=== PATIENT | male | born 1965 | race Caucasian/White ===

== ENCOUNTER 2017-09-26 17:35 | Emergency (ER) | payer SELFPAY, BC | END 2017-09-26 18:31 | disposition home or self-care (01) | LOC: M ED 17:35 | DX: F10.10 Alcohol abuse, uncomplicated (principal); F17.210 Nicotine dependence, cigarettes, uncomplicated | CPT/HCPCS: 99284 ==

== ENCOUNTER → 2019-04-26 | Outpatient (REF) | payer OTHER ==
[2019-04-26 18:06] LABS: BASO # 0.1 10^3/uL (0.0-0.2); BASO % 0.6 % (0.0-1.0); EOS # 0.2 10^3/uL (0.0-0.5); EOS % 2.2 % (0.0-3.0); HEMATOCRIT 42.1 % (42.0-52.0); HEMOGLOBIN 13.8 g/dl (13.5-17.5); LYMPH # 1.1 10^3/uL (1.5-5.0); LYMPH % 9.8 % (24.0-44.0); MEAN CORPUSCULAR HEMOGLOBIN 30.5 pg (27.0-33.0); MEAN CORPUSCULAR HGB CONC 32.8 g/dl (32.0-36.5); MEAN CORPUSCULAR VOLUME 93.1 fl (80.0-96.0); MONO # 1.1 10^3/uL (0.0-0.8); MONO % 10.3 % (0.0-5.0); NEUTROPHILS # 8.5 10^3/uL (1.5-8.5); NEUTROPHILS % 76.6 % (36.0-66.0); PLATELET COUNT, AUTOMATED 377 10^3/uL (150-450); RED BLOOD COUNT 4.52 10^6/uL (4.30-6.10); WHITE BLOOD COUNT 11.1 10^3/uL (4.0-10.0)
[2019-04-26 18:13] LABS: ALBUMIN 3.8 GM/DL (3.2-5.2); ALT/SGPT 15 U/L (12-78); BILIRUBIN,TOTAL 0.5 MG/DL (0.2-1.0); BLOOD UREA NITROGEN 7 MG/DL (7-18); CALCIUM LEVEL 9.4 MG/DL (8.5-10.1); CARBON DIOXIDE LEVEL 32 MEQ/L (21-32); CHLORIDE LEVEL 96 MEQ/L (98-107); CHOLESTEROL LEVEL 176 MG/DL (<200); CHOLESTEROL RISK RATIO 2.933 (<5); CREATININE FOR GFR 0.64 MG/DL (0.70-1.30); ETHYL ALCOHOL (ETHANOL) 0.035 % (0.000-0.010); GLOMERULAR FILTRATION RATE > 60.0 (>56); GLUCOSE, FASTING 106 MG/DL (70-100); HDL CHOLESTEROL 60 MG/DL (>40); LDL CHOLESTEROL 80 MG/DL (<100); NON-HDL-C 116 MG/DL; POTASSIUM SERUM 3.9 MEQ/L (3.5-5.1); SODIUM LEVEL 137 MEQ/L (136-145); TOTAL PROTEIN 7.4 GM/DL (6.4-8.2); TRIGLYCERIDES LEVEL 181 MG/DL (<150)
[2019-05-01 08:06] LABS: CANNABINOID, URINE Positive (Cutoff=20); CARBOXY THC (GC/MS) >300 ng/mL (Cutoff=10); CREATININE, URINE 212.8 mg/dL (20.0-300.0); OXYCODONE URINE Positive (.); OXYCODONE, URINE CONFIRM 132 ng/mL (Cutoff=100); OXYCODONE/OXYMORPH, URINE Positive (Cutoff=100); OXYMORPHONE, URINE Positive (.); OXYMORPHONE, URINE CONFIRM 1979 ng/mL (Cutoff=100)
== END ==
LOC: M SFHCPLAZ 14:50
DX: Z13.220 Encounter for screening for lipoid disorders (principal); Z13.1 Encounter for screening for diabetes mellitus; Z13.0 Encounter for screening for diseases of the blood and blood-forming organs and certain disorders involving the immune mechanism; F10.21 Alcohol dependence, in remission; Z13.89 Encounter for screening for other disorder

== ENCOUNTER 2019-12-08 19:05 | Emergency (ER) | payer OTHER ==
[~2019-12-08] VITALS: Ht 167.6 cm; Wt 56.1 kg
[~2019-12-08 19:05] MED LIST: DIFL10SU GT; FENT12DI8 TD; FLAG500T PO; PENI500T PO
[2019-12-08 19:06] VITALS: BP 105/69
[2019-12-09] MEDS ORDERED: PENI500T (09:08)
[2019-12-09] MEDS ORDERED: GLYC1TAB18 (09:08)
[2019-12-14] MEDS ORDERED: LEVO750T13 PO ×2 (11:07→11:09)
== END 2019-12-08 20:17 | disposition home or self-care (01) ==
LOC: M ED 19:05
DX: K94.23 Gastrostomy malfunction (principal); C32.9 Malignant neoplasm of larynx, unspecified; F17.200 Nicotine dependence, unspecified, uncomplicated; Z79.899 Other long term (current) drug therapy

== ENCOUNTER 2019-12-09 08:57 | Emergency (ER) | payer OTHER ==
[~2019-12-09] VITALS: Ht 167.6 cm; Wt 55.7 kg
[2019-12-09] MEDS ORDERED: GLYC1TAB18 (09:08)
[2019-12-09] MEDS ORDERED: PENI500T (09:08)
[2019-12-09] MEDS ORDERED: LIDOCAINE 2% 5ML JELLY UROJET As Ordered ONE (09:58)
[2019-12-09] MEDS ORDERED: LIDOCAINE 2% 5ML JELLY UROJET TOP ONE (10:00)
[2019-12-09] MEDS ORDERED: GASTROGRAFIN SOLUTION 30ML (Q9963) PEG STA (10:19)
[2019-12-09] MEDS ORDERED: GASTROGRAFIN SOLUTION 30ML (Q9963) As Ordered ONE (10:19)
[2019-12-09 10:49] VITALS: BP 98/56
--- NOTE | 2019-12-09 11:21 | REP ---
KUB ABDOMEN AND PELVIS: KUB film of the abdomen and pelvis performed. Contrast is injected through a PEG tube to evaluate tip positioning. The contrast enters the stomach and therefore, the PEG tube tip is in the stomach. Bowel gas pattern is normal. Electronically Signed by Nick Patel MD 12/09/2019 12:54 P
[2019-12-14] MEDS ORDERED: LEVO750T13 PO ×2 (11:07→11:09)
== END 2019-12-09 10:55 | disposition home or self-care (01) ==
LOC: M ED 08:57
DX: K94.23 Gastrostomy malfunction (principal); Y92.89 Other specified places as the place of occurrence of the external cause; C34.90 Malignant neoplasm of unspecified part of unspecified bronchus or lung; C14.0 Malignant neoplasm of pharynx, unspecified; F17.210 Nicotine dependence, cigarettes, uncomplicated; Z79.899 Other long term (current) drug therapy

== ENCOUNTER → 2019-12-14 | Outpatient (CLI) | payer OTHER ==
[~2019-12-14] MED LIST changes: +GLYC1TAB18; +LEVO750T13 PO; +MORP20SO3 PO; +PENI500T
--- NOTE | 2019-12-15 02:07 | REP ---
Clinical: History of head and neck cancer. Technique: PA and lateral. Comparison: None. Findings: Innumerable bilateral for rounded lesions are identified measuring up to grossly 4.5 cm including cavitary lesion in the right lower lobe. Findings are most compatible with metastatic disease unless proven otherwise. Acute pneumonia cannot be excluded as well. No definite effusion although small pleural reaction cannot be excluded. No pneumothorax. Hypertonia to the right shoulder cannot be excluded. Impression: 1. Innumerable bilateral pulmonary opacities including cavitary lesion in the right lower lobe suspicious for metastatic disease. Superimposed pneumonia cannot be excluded. Electronically Signed by Rajan Fitzpatrick MD 12/15/2019 01:59 A
== END ==
LOC: M RAD 12:17
PROVIDERS: ATTEND Internal Medicine Medical Oncology
DX: C76.0 Malignant neoplasm of head, face and neck (principal)

== ENCOUNTER 2019-12-25 09:38 | Emergency (ER) | payer OTHER ==
[~2019-12-25 09:38] MED LIST changes: -MORP20SO3 PO
[2019-12-25] MEDS ORDERED: NS 1,000 ML IV SCH (10:03)
[2019-12-25] MEDS ORDERED: PANTOPRAZOLE 40MG VIAL (C9113 PER 1) IV ONE (10:15)
[2019-12-25] MEDS ORDERED: ONDANSETRON 4MG/2ML VIAL IV ONE (10:15)
[2019-12-25] MEDS ORDERED: MORP20SO3 PO (10:27)
[2019-12-25 10:31] LABS: BASO % 0.2 % (0.0-1.0); EOS % 0.1 % (0.0-3.0); HEMATOCRIT 25.1 % (42.0-52.0); HEMOGLOBIN 8.2 g/dl (13.5-17.5); LYMPH # 0.5 10^3/uL (1.5-5.0); LYMPH % 2.8 % (24.0-44.0); MEAN CORPUSCULAR HEMOGLOBIN 29.4 pg (27.0-33.0); MEAN CORPUSCULAR HGB CONC 32.7 g/dl (32.0-36.5); MONO # 0.7 10^3/uL (0.0-0.8); MONO % 4.2 % (0.0-5.0); NEUTROPHILS # 16.2 10^3/uL (1.5-8.5); NEUTROPHILS % 92.2 % (36.0-66.0); PLATELET COUNT, AUTOMATED 452 10^3/uL (150-450); RED BLOOD COUNT 2.79 10^6/uL (4.30-6.10); WHITE BLOOD COUNT 17.5 10^3/uL (4.0-10.0)
[2019-12-25 11:00] LABS: ALBUMIN 3.3 GM/DL (3.2-5.2); ALT/SGPT 14 U/L (12-78); BILIRUBIN,DIRECT 0.1 MG/DL (0.0-0.2); BILIRUBIN,TOTAL 0.4 MG/DL (0.2-1.0); CK-MB VALUE MASS < 1.0 NG/ML (<3.6); CPK CREATINE PHOSPHOKINASE 34 U/L (39-308); LIPASE 40 U/L (73-393); MB/CK RELATIVE INDEX 2.94 (< OR =4); TROPONIN I < 0.02 NG/ML (< 0.10)
[2019-12-25] MEDS ORDERED: ISOVUE-370 76% 100ML VIAL As Ordered ONE (11:24)
--- NOTE | 2019-12-25 12:00 | REP ---
Clinical: Vomiting. Technique: Axial contrast enhanced images from the lung bases to the pubic symphysis using 100 ml Isovue 370 intravenous contrast material with coronal and sagittal re-formations. Comparison: None. Findings: Lung bases demonstrate large metastatic neoplastic lesions. Liver, spleen, pancreas, gallbladder, right adrenal gland and bilateral kidneys are normal. The left adrenal gland appears mildly enlarged and is otherwise nonspecific in its appearance. 2.7 cm soft tissue structure at the gastroesophageal region anterior to the left adrenal gland along with smaller adjacent similar soft tissue lesions most compatible with pathologic adenopathy (image 27). Percutaneous gastrostomy tube is identified in satisfactory position. The enteric system is otherwise grossly unremarkable and without obvious obstruction or acute inflammatory process. Normal terminal ileum and appendix are identified in the right lower quadrant. Scattered colonic diverticula noted without acute diverticulitis. Pelvis demonstrates normal bladder and age appropriate prostate/seminal vesicles. No ascites. No free air. Abdominal aorta and vasculature appear grossly normal. Skeletal structures without focal osseous abnormality identified. Impression: 1. Innumerable primary/metastatic neoplastic lesions within the visualized lung bases measuring up to roughly 5.3 cm in the infrahilar right lower lobe. 2. Suspected pathologic adenopathy at the gastroesophageal level adjacent to the gastric cardia measuring up to 2.7 cm. 3. Mildly enlarged left adrenal gland is nonspecific. 4. No further acute abdominopelvic pathology identified. Electronically Signed by Rajan Fitzpatrick MD 12/25/2019 11:51 A
--- NOTE | 2019-12-25 12:58 | ECGEPIP ---
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
[2019-12-25 16:30] VITALS: BP 116/80
--- NOTE | 2019-12-28 19:40 | ED PDOC ---
Post-Departure Follow-Up dr lua faxed formal report of ct abd/p for fu Julio C Lowe MD December 28, 2019 19:40
== END 2019-12-25 16:33 | disposition home or self-care (01) ==
LOC: M ED 09:38
DX: K92.0 Hematemesis (principal); C78.01 Secondary malignant neoplasm of right lung; C76.0 Malignant neoplasm of head, face and neck; Z93.1 Gastrostomy status; F17.200 Nicotine dependence, unspecified, uncomplicated; F12.10 Cannabis abuse, uncomplicated; Z79.899 Other long term (current) drug therapy
CPT/HCPCS: 74177; 80047; 80076; 82550; 82553; 83605; 83690; 85025; 86850; 86900; 86901; 87040; 93005; 93041; 96361; 96374; 96375; 99285; C9113; J2405; Q9967